=== PATIENT | male | born 1955 | race Caucasian/White ===

== ENCOUNTER 2023-06-10 09:37 | Inpatient (IN) | payer MEDICARE, MEDICAID ==
[~2023-06-10] VITALS: Ht 172.7 cm; Wt 84.1 kg
[2023-06-10 10:01] LABS: BASOPHILS # (AUTO) 0.1 X10'3 (0-0.2); EOSINOPHILS # (AUTO) 0.2 X10'3 (0-0.9); EOSINOPHILS % (AUTO) 4.6 % (0-6); HEMATOCRIT 34.7 % (42.0-52.0); HEMOGLOBIN 11.4 g/dl (14.0-17.9); LYMPHOCYTES # (AUTO) 0.9 X10'3 (1.1-4.8); LYMPHOCYTES % (AUTO) 19.1 % (21-51); MEAN CORPUSCULAR HEMOGLOBIN 29.3 PG (27.0-31.0); MEAN CORPUSCULAR HGB CONC 32.9 g/dL (33.0-36.5); MEAN PLATELET VOLUME 8.7 FL (7.4-10.4); MONOCYTES # (AUTO) 0.6 X10'3 (0-0.9); MONOCYTES % (AUTO) 12.1 % (2-12); NEUTROPHILS % (AUTO) 63.2 % (42-75); PLATELET COUNT 126 X10'3 (140-440); RED CELL DISTRIBUTION WIDTH 17.8 % (11.5-14.5); WHITE BLOOD COUNT 4.8 X10'3 (4.5-11.0)
[2023-06-10 10:19] LABS: ALBUMIN 2.9 G/DL (3.4-5.0); ANION GAP 9 (8-16); BLOOD UREA NITROGEN 8 MG/DL (7-18); BUN/CREATININE RATIO 6.5 (10.0-20.0); CALCIUM 7.9 MG/DL (8.5-10.1); CHLORIDE 110 MMOL/L (99-107); CREATININE 1.24 MG/DL (0.60-1.10); LIPASE 35 U/L (16-77); POTASSIUM 3.8 MMOL/L (3.5-5.1); SODIUM 141 MMOL/L (135-145); TOTAL CARBON DIOXIDE 21.7 MMOL/L (24-32); eCRCL 56 ML/MIN; eGFR 58 ML/MIN
[2023-06-10 10:20] LABS: INR 1.2 INR; PROTHROMBIN TIME 12.6 SECONDS (9.0-12.0)
[2023-06-10 10:25] LABS: ALANINE AMINOTRANSFERASE 15 U/L (12-78); ALBUMIN 2.9 G/DL (3.4-5.0); ALBUMIN/GLOBULIN RATIO 0.7 (1.1-1.5); ALKALINE PHOSPHATASE 147 IU/L (46-116); ANION GAP 11 (8-16); ASPARTATE AMINO TRANSFERASE 26 U/L (10-37); BILIRUBIN,TOTAL 1.9 MG/DL (0.1-1.0); BLOOD UREA NITROGEN 8 MG/DL (7-18); BUN/CREATININE RATIO 6.5 (10.0-20.0); CALCIUM 7.8 MG/DL (8.5-10.1); CHLORIDE 108 MMOL/L (99-107); CREATININE 1.24 MG/DL (0.60-1.10); GLUCOSE 129 MG/DL (70-104); POTASSIUM 3.8 MMOL/L (3.5-5.1); SODIUM 140 MMOL/L (135-145); TOTAL CARBON DIOXIDE 21.1 MMOL/L (24-32); TOTAL PROTEIN 7.1 G/DL (6.4-8.2); eCRCL 56 ML/MIN; eGFR 58 ML/MIN
[2023-06-10 10:28] LABS: GLUCOSE 130 MG/DL (70-104)
[2023-06-10] MEDS: pantoprazole 40MG/NS 100ML BAG 100 ML IV ONE ×2 (10:57→15:29)
[2023-06-10 11:25] LABS: BILIRUBIN,URINE NEGATIVE (Neg); CLARITY,URINE CLEAR (Clear); COLOR,URINE YELLOW (Yellow); GLUCOSE, URINE NEGATIVE (Neg); KETONES,URINE NEGATIVE (Neg); LEUKOCYTE ESTERASE ,URINE NEGATIVE (Neg); NITRITES, URINE NEGATIVE (Neg); OCCULT BLOOD,URINE NEGATIVE (Neg); PROTEIN,URINE NEGATIVE (Neg)
[2023-06-10 11:27] LABS: UA COLLECTION TYPE NON-SPECIFIED
[2023-06-10] MEDS: octreotide inj. 1,250 MCG in normal saline 250ml IV soln 243.75 ML IV ONE (12:18)
[2023-06-10] MEDS ORDERED: ondansetron 4mg rapidly disintigrating tab PO PRN (13:30)
[2023-06-10] MEDS ORDERED: potassium Cl 40MEQ/1/2NS 520ml 520 ML IV PRN (13:30)
[2023-06-10] MEDS ORDERED: morphine 2 MG/ML inj. syringe IV PRN (13:30)
[2023-06-10] MEDS ORDERED: acetaminophen 650mg rectal suppository RC PRN (13:30)
[2023-06-10] MEDS ORDERED: mag hydrox/Alum hydrox/simeth 30ml oral suspension PO PRN (13:30)
[2023-06-10] MEDS ORDERED: bisacodyl 10mg suppository rectal RC PRN (13:30)
[2023-06-10] MEDS ORDERED: magnesium hydroxide 30ml (MOM) UD suspension PO PRN (13:30)
[2023-06-10] MEDS ORDERED: acetaminophen 325mg tablet PO PRN ×2 (13:30)
[2023-06-10] MEDS ORDERED: magnesium 2GM in 50ml NS 50 ML IV PRN (13:30)
[2023-06-10] MEDS ORDERED: magnesium 4gm in 100ml NS 100 ML IV PRN (13:30)
[2023-06-10] MEDS ORDERED: potassium Cl 20 mEq SR tablet PO PRN ×2 (13:30)
[2023-06-10] MEDS ORDERED: magnesium Cl slow-release 64mg tablet PO PRN (13:30)
[2023-06-10 13:56] LABS: HEMATOCRIT 36.3 % (42.0-52.0); HEMOGLOBIN 11.7 g/dl (14.0-17.9); MEAN CORPUSCULAR HGB CONC 32.2 g/dL (33.0-36.5); MEAN PLATELET VOLUME 9.4 FL (7.4-10.4); PLATELET COUNT 105 X10'3 (140-440); RED BLOOD COUNT 4.04 X10'6 (4.70-6.10); RED CELL DISTRIBUTION WIDTH 18.1 % (11.5-14.5); WHITE BLOOD COUNT 4.9 X10'3 (4.5-11.0)
[2023-06-10] MEDS ORDERED: QUET50TA24 PO (13:57)
[2023-06-10] MEDS ORDERED: VENL37.59 PO (13:57)
[2023-06-10] MEDS ORDERED: MIRT-67 PO (14:02)
[2023-06-10] MEDS: normal saline 1000ml 1,000 ML IV SCH (14:08)
[2023-06-10] MEDS: morphine 2 MG/ML inj. syringe IV PRN (14:14)
[2023-06-10 15:45] VITALS: BP 161/86; PULSE 95; RESP 12; TEMP 97.8; O2SAT 95
[2023-06-10 15:59] VITALS: RESP 12; O2SAT 95
[2023-06-10 18:00] VITALS: BP 147/74; PULSE 75; RESP 19; TEMP 98.2; O2SAT 94
[2023-06-10 19:38] LABS: HEMATOCRIT 36.2 % (42.0-52.0); HEMOGLOBIN 11.8 g/dl (14.0-17.9); MEAN CORPUSCULAR HEMOGLOBIN 29.3 PG (27.0-31.0); MEAN CORPUSCULAR HGB CONC 32.5 g/dL (33.0-36.5); MEAN PLATELET VOLUME 8.8 FL (7.4-10.4); PLATELET COUNT 128 X10'3 (140-440); RED BLOOD COUNT 4.02 X10'6 (4.70-6.10); RED CELL DISTRIBUTION WIDTH 18.3 % (11.5-14.5); WHITE BLOOD COUNT 4.8 X10'3 (4.5-11.0)
[2023-06-10 20:00] VITALS: RESP 19; O2SAT 94
[2023-06-10] MEDS: K and/or MAG REPLACEMENT MC SCH (20:00)
[2023-06-10] MEDS: docusate sod 100mg capsule PO SCH (21:04)
[2023-06-10] MEDS: HYDROcodone/acetaminophen 5mg/325mg tablet PO PRN (21:20)
[2023-06-10 22:00] VITALS: BP 131/69; PULSE 72; RESP 18; TEMP 98.2; O2SAT 94
[2023-06-11] VITALS (12 sets, daily range): BP systolic 108–191; BP diastolic 63–90; PULSE 73–96; RESP 10–18; TEMP 97.1–98.4; O2SAT 91–96
[2023-06-11 03:29] LABS: HEMATOCRIT 34.2 % (42.0-52.0); HEMOGLOBIN 11.3 g/dl (14.0-17.9); MEAN CORPUSCULAR HEMOGLOBIN 29.4 PG (27.0-31.0); MEAN CORPUSCULAR HGB CONC 32.9 g/dL (33.0-36.5); MEAN CORPUSCULAR VOLUME 89.4 FL (78-98); MEAN PLATELET VOLUME 9.2 FL (7.4-10.4); PLATELET COUNT 134 X10'3 (140-440); RED BLOOD COUNT 3.82 X10'6 (4.70-6.10); RED CELL DISTRIBUTION WIDTH 17.6 % (11.5-14.5); WHITE BLOOD COUNT 4.1 X10'3 (4.5-11.0)
[2023-06-11 08:26] LABS: BASOPHILS # (AUTO) 0.1 X10'3 (0-0.2); EOSINOPHILS # (AUTO) 0.3 X10'3 (0-0.9); EOSINOPHILS % (AUTO) 8.8 % (0-6); HEMATOCRIT 34.1 % (42.0-52.0); HEMOGLOBIN 11.1 g/dl (14.0-17.9); LYMPHOCYTES # (AUTO) 0.7 X10'3 (1.1-4.8); MEAN CORPUSCULAR HEMOGLOBIN 29.1 PG (27.0-31.0); MEAN CORPUSCULAR HGB CONC 32.6 g/dL (33.0-36.5); MEAN CORPUSCULAR VOLUME 89.4 FL (78-98); MEAN PLATELET VOLUME 9.1 FL (7.4-10.4); MONOCYTES # (AUTO) 0.6 X10'3 (0-0.9); MONOCYTES % (AUTO) 17.4 % (2-12); NEUTROPHILS # (AUTO) 1.9 X10'3 (1.8-7.7); NEUTROPHILS % (AUTO) 52.8 % (42-75); PLATELET COUNT 132 X10'3 (140-440); RED BLOOD COUNT 3.82 X10'6 (4.70-6.10); RED CELL DISTRIBUTION WIDTH 18.3 % (11.5-14.5); WHITE BLOOD COUNT 3.5 X10'3 (4.5-11.0)
[2023-06-11 09:00] LABS: ALANINE AMINOTRANSFERASE 7 U/L (12-78); ALBUMIN 2.5 G/DL (3.4-5.0); ALBUMIN/GLOBULIN RATIO 0.6 (1.1-1.5); ALKALINE PHOSPHATASE 132 IU/L (46-116); ANION GAP 9 (8-16); ASPARTATE AMINO TRANSFERASE 23 U/L (10-37); BLOOD UREA NITROGEN 8 MG/DL (7-18); BUN/CREATININE RATIO 6.7 (10.0-20.0); CALCIUM 7.6 MG/DL (8.5-10.1); CHLORIDE 110 MMOL/L (99-107); CHOL/HDL RATIO 3.6 (0.00-4.99); CHOLESTEROL 123 MG/DL (0-200); GLUCOSE 104 MG/DL (70-104); HDL CHOLESTEROL 34 MG/DL (35-60); LDL CHOLESTEROL 82 MG/DL (50-100); MAGNESIUM 1.7 MG/DL (1.5-2.4); PHOSPHORUS 2.7 MG/DL (2.3-4.5); POTASSIUM 3.7 MMOL/L (3.5-5.1); SODIUM 141 MMOL/L (135-145); TOTAL CARBON DIOXIDE 21.8 MMOL/L (24-32); TOTAL PROTEIN 6.5 G/DL (6.4-8.2); TRIGLYCERIDES 78 MG/DL (20-135); eCRCL 58 ML/MIN; eGFR 60 ML/MIN
[2023-06-11 09:49] LABS: ANISOCYTOSIS 2+; ELLIPTOCYTES 1+; PLATELET ESTIMATE DECREASED; SCHISTOCYTES FEW
[2023-06-11 09:50] LABS: POLYCHROMASIA FEW
[2023-06-11] MEDS ORDERED: LIDOcaine 2% Viscous 15ml cup ONE (10:28)
[2023-06-11] MEDS ORDERED: fentaNYL/PF 50MCG/1 ML 2ML syringe ONE (10:40)
[2023-06-11] MEDS ORDERED: MIDAZolam 1 MG/ML 5ML VIAL ONE (10:40)
[2023-06-11] MEDS: ondansetron/PF 4mg/2ml inj IV PRN (11:02)
[2023-06-11] MEDS ORDERED: ondansetron/PF 4mg/2ml inj ONE (11:03)
[2023-06-11] MEDS: HYDROcodone/acetaminophen 10/325mg tab PO PRN (15:14)
[2023-06-11] MEDS: QUEtiapine 25mg tablet PO SCH (21:11)
[2023-06-11] MEDS: mirtazapine 15mg tablet PO SCH (21:11)
[2023-06-11] MEDS: propranolol LA 60 MG cap.SA.24H PO SCH (21:13)
[2023-06-11] MEDS: spironolactone 25 MG tablet PO SCH (21:14)
[2023-06-12] MEDS: propranolol 10mg tablet PO SCH (01:12)
[2023-06-12 02:00] VITALS: BP 138/69; PULSE 66; RESP 16; TEMP 97.1; O2SAT 94
[2023-06-12 05:37] LABS: BASOPHILS % (AUTO) 1.2 % (0-1); EOSINOPHILS # (AUTO) 0.3 X10'3 (0-0.9); EOSINOPHILS % (AUTO) 6.9 % (0-6); HEMATOCRIT 32.2 % (42.0-52.0); HEMOGLOBIN 10.7 g/dl (14.0-17.9); LYMPHOCYTES # (AUTO) 0.9 X10'3 (1.1-4.8); MEAN CORPUSCULAR HEMOGLOBIN 29.4 PG (27.0-31.0); MEAN CORPUSCULAR HGB CONC 33.1 g/dL (33.0-36.5); MEAN CORPUSCULAR VOLUME 88.7 FL (78-98); MEAN PLATELET VOLUME 8.6 FL (7.4-10.4); MONOCYTES # (AUTO) 0.6 X10'3 (0-0.9); MONOCYTES % (AUTO) 16.2 % (2-12); NEUTROPHILS # (AUTO) 2.1 X10'3 (1.8-7.7); NEUTROPHILS % (AUTO) 53.7 % (42-75); PLATELET COUNT 144 X10'3 (140-440); RED BLOOD COUNT 3.63 X10'6 (4.70-6.10); RED CELL DISTRIBUTION WIDTH 17.7 % (11.5-14.5)
[2023-06-12 06:00] VITALS: BP 138/60; PULSE 71; RESP 18; TEMP 98.1; O2SAT 96
[2023-06-12 06:00] LABS: ALANINE AMINOTRANSFERASE 12 U/L (12-78); ALBUMIN 2.5 G/DL (3.4-5.0); ALBUMIN/GLOBULIN RATIO 0.7 (1.1-1.5); ALKALINE PHOSPHATASE 127 IU/L (46-116); ANION GAP 10 (8-16); ASPARTATE AMINO TRANSFERASE 26 U/L (10-37); BILIRUBIN,TOTAL 1.6 MG/DL (0.1-1.0); BLOOD UREA NITROGEN 8 MG/DL (7-18); BUN/CREATININE RATIO 6.5 (10.0-20.0); CHLORIDE 109 MMOL/L (99-107); CREATININE 1.23 MG/DL (0.60-1.10); GLUCOSE 114 MG/DL (70-104); MAGNESIUM 1.7 MG/DL (1.5-2.4); PHOSPHORUS 3.1 MG/DL (2.3-4.5); POTASSIUM 3.7 MMOL/L (3.5-5.1); SODIUM 141 MMOL/L (135-145); TOTAL PROTEIN 6.2 G/DL (6.4-8.2); eCRCL 56 ML/MIN; eGFR 59 ML/MIN
[2023-06-12 08:00] VITALS: RESP 14; O2SAT 96
[2023-06-12] MEDS ORDERED: RIFA200T2 PO (10:20)
[2023-06-12] MEDS ORDERED: SPIR25TA PO (10:20)
[2023-06-12] MEDS ORDERED: PROP10TA10 PO (10:20)
[2023-06-12] MEDS ORDERED: PANT40TA54 PO (10:21)
[2023-06-12 11:00] VITALS: BP 149/68; PULSE 62; RESP 18; TEMP 98.4; O2SAT 95
[2023-06-12] MEDS ORDERED: LACT10SO78 PO (13:14)
== END 2023-06-12 12:22 | disposition home or self-care (01) | DRG 432 ==
LOC: ER 09:38 → ED HOLD 13:29 → PCU 3S 15:18
PROVIDERS: ADMIT Family Medicine; ATTEND Family Medicine
PROC: 06L38CZ Occlusion of Esophageal Vein with Extraluminal Device, Via Natural or Artificial Opening Endoscopic (ICD-10-PCS; principal; 2023-06-11)
DX: K70.30 Alcoholic cirrhosis of liver without ascites (principal); I85.11 Secondary esophageal varices with bleeding; N17.0 Acute kidney failure with tubular necrosis; K76.6 Portal hypertension; I48.91 Unspecified atrial fibrillation; F41.9 Anxiety disorder, unspecified; F32.A Depression, unspecified; K31.89 Other diseases of stomach and duodenum; Z79.899 Other long term (current) drug therapy; Z85.46 Personal history of malignant neoplasm of prostate; Z92.3 Personal history of irradiation; Z95.818 Presence of other cardiac implants and grafts; Z87.891 Personal history of nicotine dependence
CPT/HCPCS: 36415; 43244; 80048; 80053; 80061; 81003; 82103; 83036; 83690; 83735; 84100; 85008; 85025; 85027; 85610; 86885; 86900; 86901; 87081; 93005; 96365; 96367; 97161; 97530; 99152; 99285; A4620; C9113; G0378; J2250; J2270; J2354; J2405; J3010; J7030; J7050